=== PATIENT | male | born 1985 | race African-American/Black ===

== ENCOUNTER 2019-01-23 09:01 | Emergency (ER) | payer MEDICAID ==
[~2019-01-23] VITALS: Ht 182.9 cm; Wt 77.1 kg
[2019-01-23 09:15] VITALS: BP 150/78
[2019-01-23] MEDS ORDERED: IOHEXOL 300 MG/ML 100ML BOTTLE IJ ONE (09:52)
[2019-01-23] MEDS ORDERED: PANTOPRAZOLE 40 MG/10 ML VIAL IV ONE (11:15)
== END 2019-01-23 13:09 | disposition home or self-care (01) ==
LOC: EDBD 09:01 → ER 09:01
DX: K92.2 Gastrointestinal hemorrhage, unspecified (principal); F17.210 Nicotine dependence, cigarettes, uncomplicated; F12.10 Cannabis abuse, uncomplicated; Z87.11 Personal history of peptic ulcer disease; Z88.6 Allergy status to analgesic agent